=== PATIENT | female | born 1975 | race Caucasian/White ===

== ENCOUNTER 2018-02-16 11:54 | Day surgery (SDC) | payer OTHER ==
[~2018-02-16] VITALS: Ht 152.4 cm; Wt 97.7 kg
[~2018-02-16 11:54] MED LIST: CHOL10002 PO; FLUO10
[2018-02-16] MEDS ORDERED: Naltrexone HCl50 MG PO (12:19)
[2018-02-16] MEDS ORDERED: LEVSOD50 PO (12:20)
== END 2018-02-16 14:14 | disposition home or self-care (01) ==
LOC: ORSCSDS 11:54
PROVIDERS: Orthopaedic Surgery
PROC: 01N54ZZ Release Median Nerve, Percutaneous Endoscopic Approach (ICD-10-PCS; principal; 2018-02-16 13:00)
DX: G56.01 Carpal tunnel syndrome, right upper limb (principal); E66.9 Obesity, unspecified; Z68.41 Body mass index [BMI] 40.0-44.9, adult; Z79.899 Other long term (current) drug therapy
CPT/HCPCS: J0171; J0690; J2250; J7120

== ENCOUNTER 2018-06-29 07:16 | Day surgery (SDC) | payer OTHER ==
[~2018-06-29] VITALS: Ht 152.4 cm; Wt 100.0 kg
[~2018-06-29 07:16] MED LIST changes: +LEVSOD50 PO; +Naltrexone HCl50 MG PO
== END 2018-06-29 09:44 | disposition home or self-care (01) ==
LOC: ORSCSDS 07:16
PROVIDERS: Orthopaedic Surgery
PROC: 01N54ZZ Release Median Nerve, Percutaneous Endoscopic Approach (ICD-10-PCS; principal; 2018-06-29 08:30)
DX: G56.02 Carpal tunnel syndrome, left upper limb (principal); E66.01 Morbid (severe) obesity due to excess calories; Z68.41 Body mass index [BMI] 40.0-44.9, adult; Z79.899 Other long term (current) drug therapy
CPT/HCPCS: J0690; J2250; J3010

== ENCOUNTER 2024-06-25 08:07 | Day surgery (SDC) | payer OTHER ==
[~2024-06-25] VITALS: Ht 151 cm; Wt 88.2 kg
[2024-06-25] VITALS (14 sets, daily range): BP systolic 81–160; BP diastolic 44–95
[~2024-06-25 08:07] MED LIST changes: -FLUO10; +FLUO10 PO; +Lactated Ringer's 1,000 ML IV SCH; +propofoL 40 ML IV ONE
--- NOTE | 2024-06-25 08:49 | NUR ---
History, Chart, Medications and Allergies reviewed before start of procedure. Patient confirms NPO status and agrees with scheduled surgery. Patient States Post-Procedure ride home has been arranged with her "", Rosalie.
[2024-06-25] MEDS ORDERED: IBUP400 PO (08:53)
--- NOTE | 2024-06-25 08:58 | NUR ---
06/25/24 0858 Sulema Montero HISTORY, CHART, MEDICATIONS AND ALLERGIES REVIEWED BEFORE START OF PROCEDURE. PATIENT CONFIRMS NPO STATUS AND AGREES WITH SCHEDULED PROCEDURE. 3-LEAD EKG REVIEWED WITH PHYSICIAN PRIOR TO START OF PROCEDURE. MONITOR INTACT WITH CONTINUOUS PULSE OXIMETRY,CAPNOGRAPHY, 3-LEAD EKG, INTERMITTENT BP. SUPPLEMENTAL O2 TO BE TITRATED THROUGHOUT PROCEDURE TO MAINTAIN O2 SATURATION ABOVE 90%. PATIENT DETERMINED TO BE ASA APPROPRIATE FOR PROPOFOL SEDATION PRIOR TO START OF PROCEDURE BY DR. PEREIRA
[2024-06-25] MEDS ORDERED: Midazolam HCl 1MG / ML 2ML Vial ONE (09:50)
--- NOTE | 2024-06-25 10:03 | NUR ---
DISCHARGE NOTE Patient up to Ambulate independently. Gait steady. Discharge instructions reviewed with patient. Patient verbalizes understanding. Copy given to patient to take home. Lungs clear T/O to Auscultation. Pt tolerating PO fluids. Discharged via wheelchair to private car for ride home.
== END 2024-06-25 10:08 | disposition home or self-care (01) ==
LOC: ORSCMMR 08:07 → ORD 09:00 → ORSCMMR 09:00
PROVIDERS: Internal Medicine Gastroenterology
PROC: 0DBL8ZX Excision of Transverse Colon, Via Natural or Artificial Opening Endoscopic, Diagnostic (ICD-10-PCS; principal; 2024-06-25 09:00)
DX: Z12.11 Encounter for screening for malignant neoplasm of colon (principal); Z80.0 Family history of malignant neoplasm of digestive organs; D12.3 Benign neoplasm of transverse colon; K64.4 Residual hemorrhoidal skin tags; F32.A Depression, unspecified; Z98.84 Bariatric surgery status; E66.01 Morbid (severe) obesity due to excess calories; Z68.39 Body mass index [BMI] 39.0-39.9, adult; Z79.899 Other long term (current) drug therapy
CPT/HCPCS: 88305; J2250; J2704; J7120